=== PATIENT | male | born 1955 | race Asian ===

== ENCOUNTER 2018-01-15 07:14 | Emergency (ER) | payer BC ==
[2018-01-15] MEDS: ACETAMINOPHEN/HYDROcodone 325 MG/5 MG TAB PO (07:41)
== END 2018-01-15 09:50 | disposition home or self-care (01) ==
LOC: PHED 07:14
DX: M25.461 Effusion, right knee (principal); J45.909 Unspecified asthma, uncomplicated; I10 Essential (primary) hypertension; E78.00 Pure hypercholesterolemia, unspecified; Z86.73 Personal history of transient ischemic attack (TIA), and cerebral infarction without residual deficits; Z79.02 Long term (current) use of antithrombotics/antiplatelets; Z79.82 Long term (current) use of aspirin; Z79.899 Other long term (current) drug therapy
CPT/HCPCS: 73564; 99283